=== PATIENT | female | born 1975 | race American Indian/Alaskan Native ===

== ENCOUNTER 2020-09-26 03:54 | Emergency (ER) | payer OTHER ==
--- NOTE | 2020-09-26 09:28 | Emergency Department Report ---
ED Female HPI - General Chief complaint: Skin/Abscess/Foreign Body Stated complaint: TAMPON INSIDE Time Seen by Provider: 09/26/20 09:03 Source: patient Mode of arrival: Ambulatory Limitations: No Limitations - History of Present Illness Initial comments: 44 year old female with past medical history of HTN, epilepsy, multiple sclerosis, renal cancer status post right nephrectomy couple months ago, not currently undergoing any chemo or radiation presents to the ER today with concern that she may have had a tampon stuck inside her vagina. She states that she is currently on her menstrual cycle. She states that she remembers inserting the tampon around 1 AM this morning. She states that when she got up to use the bathroom she tried to remove the tampon but could not feel the string and so she became concerned that the tampon was stuck inside. She reports no abdominal pelvic pain, back pain, UTI symptoms or any other symptoms at this time. MD Complaint: other (vaginal FB - Tampon inside vagina ) -: This morning - Related Data Allergies Allergy/AdvReac Type Severity Reaction Status Date / Time acetaminophen [From Percocet] Allergy Swelling Verified 09/26/20 05:39 ciprofloxacin Allergy Rash Verified 09/26/20 05:39 oxycodone [From Percocet] Allergy Swelling Verified 09/26/20 05:39 tamsulosin Allergy Unknown Verified 09/26/20 05:39 ED Review of Systems ROS: Stated complaint: TAMPON INSIDE Other details as noted in HPI Comment: All other systems reviewed and negative Constitutional: denies: chills, fever Eyes: denies: eye pain, eye discharge, vision change ENT: denies: ear pain, throat pain Respiratory: denies: cough, shortness of breath, SOB with exertion, SOB at rest, wheezing Gastrointestinal: denies: abdominal pain, nausea, vomiting, diarrhea, constipation, hematemesis, melena, hematochezia Genitourinary: other (Tampon stuck inside vagina). denies: urgency, dysuria, frequency, hematuria, discharge, abnormal menses, dyspareunia Musculoskeletal: denies: back pain, joint swelling, arthralgia Skin: denies: rash, lesions, change in color, change in hair/nails Neurological: denies: headache, weakness, paresthesias, confusion, abnormal gait, vertigo Psychiatric: denies: anxiety, depression, auditory hallucinations, visual hallucinations, homicidal thoughts, suicidal thoughts Hematological/Lymphatic: denies: easy bleeding, easy bruising, swollen glands ED Past Medical Hx - Past Medical History Previous Medical History?: Yes Hx Hypertension: Yes Hx Seizures: Yes Additional medical history: Epilepsy, Multiple Sclerosis, Hx of malignant tumor on kidney - Surgical History Past Surgical History?: Yes Additional Surgical History: Kidney removal - Social History Smoking Status: Never Smoker Substance Use Type: None ED Physical Exam - General Limitations: No Limitations General appearance: alert, in no apparent distress - Head Head exam: Present: atraumatic, normocephalic, normal inspection - Eye Eye exam: Present: normal appearance, PERRL, EOMI Pupils: Present: normal accommodation - Respiratory Respiratory exam: Absent: respiratory distress - Cardiovascular Cardiovascular Exam: Present: regular rate - GI/Abdominal GI/Abdominal exam: Present: soft. Absent: distended, tenderness, guarding, rebound - External exam: Present: normal external exam Speculum exam: Present: vaginal bleeding (Small amount of blood in the vaginal vault). Absent: erythema, vaginal discharge, cervical discharge, foreign body, tissue, laceration Bi-manual exam: Present: normal bi-manual exam. Absent: cervical motion tendernes, adnexal tenderness, adnexal mass, uterine enlargement, uterine tenderness - Extremities Exam Extremities exam: Present: normal inspection - Neurological Exam Neurological exam: Present: oriented X3, CN II-XII intact, normal gait - Psychiatric Psychiatric exam: Present: normal mood - Skin Skin exam: Present: intact ED Course Vital Signs 09/26/20 09/26/20 05:40 09:37 Temperature 98.3 F Pulse Rate 89 Respiratory 18 Rate Blood Pressure 184/111 Blood Pressure 191/102 [Left] O2 Sat by Pulse 99 Oximetry ED Medical Decision Making - Medical Decision Making No tampon found on speculum exam. No other acute abnormality on exam. Re- assured patient that it likely may have fallen out. Pt BP noted to be elevated, she has known hx of HTN but did not take her BP meds this morning. She does not currently have any symptoms related to her BP. Additional testing/work up not indicated at this time. Pt well appearing, not toxic and not in any acute distress. Pt stable at time of d/c. Critical care attestation.: If time is entered above; I have spent that time in minutes in the direct care of this critically ill patient, excluding procedure time. ED Disposition Clinical Impression: Normal vaginal exam Disposition: TO HOME OR SELFCARE Is pt being admited?: No Does the pt Need Aspirin: No Condition: Stable Instructions: Medical Screening Exam Additional Instructions: I recommend just using regular pads during your MC. Follow-up with your primary care doctor as needed. Return to the ER if your symptoms changes or worsen Referrals: KIKE DUNLAP MD [Primary Care Provider] - 3-5 Days Time of Disposition: 09:29
[2020-09-26 09:38] VITALS: BP 191/102
== END 2020-09-26 10:16 | disposition home or self-care (01) ==
LOC: ED 03:54
DX: T19.2XXA Foreign body in vulva and vagina, initial encounter (principal); I10 Essential (primary) hypertension; G35 Multiple sclerosis; Z85.528 Personal history of other malignant neoplasm of kidney; G40.909 Epilepsy, unspecified, not intractable, without status epilepticus; X58.XXXA Exposure to other specified factors, initial encounter; Y93.89 Activity, other specified; Y92.89 Other specified places as the place of occurrence of the external cause; Y99.8 Other external cause status
CPT/HCPCS: 99283